=== PATIENT | male | born 1965 | race Caucasian/White ===

== ENCOUNTER 2023-08-01 16:19 | Emergency (ER) | payer OTHER, SELFPAY ==
[2023-08-01 16:22] VITALS: BP 146/90
[2023-08-01 17:27] VITALS: BMI 21.8
[2023-08-01] MEDS: LET TOPICAL ANESTHETIC GEL 9 ML TOPICAL (17:29)
--- NOTE | 2023-08-01 17:47 | ED.GENMED ---
History of Present Illness
General
Chief Complaint: Fall
Source: patient
Exam Limitations: none
Time Seen by Provider: 08/01/23 16:40
Nursing documentation reviewed up to this point in time: agreed with
History of Present Illness
History of Present Illness:
58-year-old male was at a friend's house, fell down 12 wooden steps off of his deck. He did hit the back of his head and has a laceration, no loss of consciousness, denies neck pain, denies nausea, denies headache or change in vision. Denies
weakness, numbness or tingling in his extremities.
He also lacerated his left inner calf, mild abrasion of his left elbow, several deep clean abrasions of the dorsum of his right foot as well as a laceration on the dorsum of his right foot and the first MTP joint.
He has been up and ambulating since then, he denies chest pain, trouble breathing or abdominal pain.
He had a tetanus immunization 18 months ago
Past History
Past History
ED Past Medical History: HTN
ED Past Surgical History: None
Social History
Tobacco: Non-smoker
Alcohol: Occasional
Personal:
Living: with family
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
Review of Systems
Review of Systems
Allergies reviewed?: Yes
All Other Systems: ROS reviewed and negative except as documented in HPI and ROS
Respiratory: Denies trouble breathing
Cardiac: Denies chest pain
ABD/GI: Denies abdominal pain or nausea
Musculoskeletal: Denies neck pain or back pain
Skin: Reports other (Multiple deep clean abrasions of the right foot dorsum, superficial abrasion of the left elbow, laceration of the dorsum of the right foot and also the left calf.)
Neurological: Reports no symptoms
Phy Exam
Physical Exam
Physical Exam:
GENERAL: No acute distress. A&Ox3.
CONSTITUTIONAL: Afebrile.
EYES: PERRL, conjunctivae normal
Neck: Supple
ENMT: moist mucus membranes, Pharynx nl
RESPIRATORY: Regular respirations, nonlabored, lungs clear.
CARDIOVASCULAR: Regular rate and rhythm, no murmurs, no rubs.
GI: Soft, nontender, normal BS
MUSCULOSKELETAL: No spinal bony tenderness. Elbow, right foot and left lower leg with no significant bony tenderness. Full range of motion. Moves with ease. Well perfused.
SKIN: Warm, dry, pink
PSYCH: Normal mood and affect. Well kept, interactive and appropriate
NEUROLOGIC: Awake, alert and oriented. No focal neurological deficits
Course
Orders/Labs/Results
Orders:
Orders
08/01/23 17:11
Lidocaine/Epinephrine/Tetracai [Let Topical Anesthetic Gel] 9 ml TOPICAL NOW STA
08/01/23 18:51
Cephalexin Monohydrate [Keflex] 500 mg PO NOW STA
Vital Signs
Initial and Last Documented VS:
Initial Vital Signs
Temp Pulse Resp BP Pulse Ox
98.0 F 109 16 146/90 98
08/01/23 16:22 08/01/23 16:22 08/01/23 16:22 08/01/23 16:22 08/01/23 16:22
Last Documented Vital Signs
Temp Pulse Resp BP Pulse Ox
98.0 F 109 16 146/90 98
08/01/23 16:22 08/01/23 16:22 08/01/23 16:22 08/01/23 16:22 08/01/23 16:22
Procedures
Laceration Closure
R foot MTP joint dorsally:
Status of Wound: clean
Description of Wound Edges: ragged and surrounded by abrasion
Preparation: cleaned with saline
Revision/Debridement: routine- no revision (removed devitalized skin)
Wound exploration: explored to base- no FB
Type of Closure: single layer closure
Skin Closure Material: 4-0 prolene
Number of sutures: 3
R foot dorsum:
Status of Wound: clean
Description of Wound Edges: ragged and surrounded by abrasion
Preparation: cleaned with saline
Anesthesia: 1% Lidocaine with epi and Topical-LET
Revision/Debridement: minor revision (Debrided devitalized tissue)
Wound exploration: explored to base- no FB
Type of Closure: single layer closure
Skin Closure Material: 3-0 prolene
Number of sutures: 3
L medial calf:
Status of Wound: clean
Size of Wound in cm: 7
Description of Wound Edges: sharp
Preparation: cleaned with saline
Anesthesia: 1% Lidocaine with epi and Topical-LET
Revision/Debridement: routine- no revision
Wound exploration: explored to base- no FB
Type of Closure: single layer closure and mattress sutures
Skin Closure Material: 3-0 prolene
Number of sutures: 12
Additional information:
7 mattress sutures, 5 simple interrupted sutures
posterior upper scalp:
Status of Wound: clean
Size of Wound in cm: 1.5
Description of Wound Edges: sharp
Preparation: cleaned with saline
Revision/Debridement: routine- no revision
Type of Closure: Dermabond-skin glue
Additional information:
Wound edges well-approximated with wound glue
MDM/Problems Addressed
MDM/Problems Addressed:
58-year-old male was at a friend's house, fell down 12 wooden steps off of his deck. He did hit the back of his head and has a laceration, no loss of consciousness, denies neck pain, denies nausea, denies headache or change in vision. Denies
weakness, numbness or tingling in his extremities.
He also lacerated his left inner calf, mild abrasion of his left elbow, several deep clean abrasions of the dorsum of his right foot as well as a laceration on the dorsum of his right foot and the first MTP joint.
He has been up and ambulating since then, he denies chest pain, trouble breathing or abdominal pain.
He had a tetanus immunization 18 months ago
No significant bony tenderness to extremities, no indication for imaging, no significant head injury, not anticoagulated, no LOC or neck pain, no indication for head or neck imaging.
All wounds sutured, antibiotic ointment, nonstick and sterile dressings applied.
Prescription for Keflex sent to patient's pharmacy
*Critical Care Note
Total Time (30-74mins, 75-104mins- exclusive of procedures): Not Applicable
ED Attending Note
-
Portions of this chart may have been created with voice recognition software.� Occasional wrong word or��sound alike� substitutions may have occurred due to the inherent limitations of voice recognition software.
Discharge Plan
Departure
Patient Disposition: Home (Routine Discharge)
Date of Disposition: 08/01/23
Time of Disposition: 18:52
Patient with high blood pressure during this ER visit?: No
Condition: Good
Discharge Problem:
Fall from slip, trip, or stumble, Multiple abrasions, Laceration of scalp, Laceration of dorsum of right foot, Laceration of left calf, Abrasion of left elbow
Instructions: Wound Care (DC), Head Injury in Adults (DC), Laceration Repair With Stitches (DC), Skin Abrasions (DC)
Prescriptions:
New
cephalexin 500 mg capsule
500 mg PO QID 7 Days Qty: 28 0RF
Referrals:
Fan Oliver, DO [Family Provider] - Follow up in 2-3 days
Stand Alone Forms: Return to Work
Activity Restrictions/Additional Instructions:
As we discussed, have the sutures removed in 12 to 14 days.
Wash all areas daily with soap and water, apply antibiotic ointment and fresh dressings
Keep the wounds clean, dry and covered except for bathing until the sutures are removed
Seek medical care immediately for signs of infection which may include increasing pain, swelling, redness, pus drainage or fever
I sent a prescription to your pharmacy for Keflex antibiotic take it 4 times a day for 7 days
Tylenol or ibuprofen as needed for pain
Interventions
Interventions:
*Risk Screen - Suicide Last Done: 08/01/23 17:27
*General Assessment Last Done: 08/01/23 17:27
*Neglect/Abuse Screening Last Done: 08/01/23 17:27
*ED COVID-19 Vaccine History Last Done: 08/01/23 16:22
*Nursing Disposition Last Done: 08/01/23 20:05
ED-Musculoskeletal Assessment Last Done: 08/01/23 18:20
ED- Neurological Assessment Last Done: 08/01/23 18:20
ED-Skin Assessment Last Done: 08/01/23 20:04
Discharge Date and Time
Discharge Date/Time: 08/01/23 20:06
Print Language: CZECH
[2023-08-01] MEDS: KEFLEX 500 MG PO (19:02)
== END 2023-08-01 20:06 | disposition home or self-care (01) ==
LOC: EMR 16:19
PROVIDERS: EMERGENCY PHYSICIAN Emergency Medicine; FAMILY PHYSICIAN Family Medicine
DX: S01.01XA Laceration without foreign body of scalp, initial encounter (principal); S50.312A Abrasion of left elbow, initial encounter; S91.311A Laceration without foreign body, right foot, initial encounter; S81.812A Laceration without foreign body, left lower leg, initial encounter; W19.XXXA Unspecified fall, initial encounter
CPT/HCPCS: 99283; 12004